=== PATIENT | female | born 1975 ===

== ENCOUNTER 2016-10-05 09:45 | Emergency (ER) | payer OTHER, SELFPAY ==
[2016-10-05 09:59] VITALS: BP 116/74; PULSE 82; RESP 18; TEMP 99.3; O2SAT 100
--- NOTE | 2016-10-05 10:20 | ED PDOC ---
HPI: General Adult Time Seen by Provider: 10/05/16 10:16 Chief Complaint (Nursing): Cough, Cold, Congestion Chief Complaint (Provider): cough History Per: Patient History/Exam Limitations: no limitations Additional Complaint(s): 41yo female complaining of sore throat for a few days. She reports cough in the mornings. States she is around kids often. She denies fever. Past Medical History Reviewed: Historical Data, Nursing Documentation, Vital Signs Vital Signs: Last Vital Signs Temp 99.3 F 10/05/16 09:58 Pulse 82 10/05/16 09:58 Resp 18 10/05/16 09:58 BP 116/74 10/05/16 09:58 Pulse Ox 100 10/05/16 10:21 - Medical History PMH: No Chronic Diseases - Surgical History Surgical History: No Surg Hx - Family History Family History: States: Unknown Family Hx - Home Medications Home Medications: Ambulatory Orders Medication Instructions Recorded Azithromycin [Zithromax] 250 mg PO DAILY #6 tab 10/05/16 - Allergies Allergies/Adverse Reactions: Allergies Allergy/AdvReac Type Severity Reaction Status Date / Time ampicillin AdvReac ANAPHYLAXIS Verified 10/05/16 10:09 Penicillins AdvReac ANAPHYLAXIS Verified 10/05/16 10:08 Review of Systems ROS Statement: Except As Marked, All Systems Reviewed And Found Negative Constitutional: Negative for: Fever ENT: Positive for: Throat Pain Respiratory: Positive for: Cough Physical Exam - Reviewed Nursing Documentation Reviewed: Yes Vital Signs Reviewed: Yes - Physical Exam Appears: Positive for: Well, Non-toxic, No Acute Distress Head Exam: Positive for: ATRAUMATIC, NORMAL INSPECTION, NORMOCEPHALIC Skin: Positive for: Warm, Dry Eye Exam: Positive for: EOMI, PERRL ENT: Positive for: Pharyngeal Erythema (mild). Negative for: Tonsillar Exudate Cardiovascular/Chest: Positive for: Regular Rate, Rhythm Respiratory: Positive for: Normal Breath Sounds. Negative for: Rales, Rhonchi, Wheezing Gastrointestinal/Abdominal: Positive for: Soft. Negative for: Tenderness Extremity: Positive for: Normal ROM - ECG O2 Sat by Pulse Oximetry: 100 (RA) Pulse Ox Interpretation: Normal Medical Decision Making Medical Decision Makin rapid strep ordered Disposition - Clinical Impression Clinical Impression: Pharyngitis - Disposition Referrals: [facility] [Outside] Disposition Time: 12:27 Condition: FAIR Prescriptions: Azithromycin [Zithromax] 250 mg PO DAILY #6 tab Instructions: Pharyngitis (ED) Additional Comments - Additional Comments Additional Comments: Scribe Attestation: Documented by Boris Lainez acting as a scribe for Cullen Caal MD. Provider Scribe Attestation: All medical record entries made by the Scribe were at my direction and personally dictated by me. I have reviewed the chart and agree that the record accurately reflects my personal performance of the history, physical exam, medical decision making, and the department course for this patient. I have also personally directed, reviewed, and agree with the discharge instructions and disposition.
== END 2016-10-05 13:25 | disposition home or self-care (01) ==
LOC: H.ER 09:45
DX: J02.9 Acute pharyngitis, unspecified (principal)

== ENCOUNTER 2017-09-14 20:30 | Emergency (ER) | payer SELFPAY ==
[2017-09-14 20:54] VITALS: PULSE 73; RESP 16
--- NOTE | 2017-09-14 22:18 | ED PDOC ---
History of Present Illness History of Present Illness: 42 y/o female presents with flu-like symptoms x 3 days. Patient reports fever, nasal congestion, sneezing, and mild nonproductive cough. Denies nausea/ vomiting, chest pain, shortness of breath, palpitations, abdominal pain, changes in bowel movements, urinary symptoms. PAtient's son sick with same. Last dose Tylenol taken 17:00. HPI: Influenza Time Seen by Provider: 09/14/17 21:38 Chief Complaint: Flu-like Symptoms Chief Complaint (Provider): flu-like symptoms History Per: Patient Exam Limitations: no limitations Onset/Duration Of Symptoms: Days (3) Symptoms include: fever, bodyaches, cough Past Medical History Reviewed: Historical Data, Nursing Documentation, Vital Signs Vital Signs: Last Vital Signs Temp 98.4 F 09/14/17 20:51 Pulse 73 09/14/17 20:51 Resp 16 09/14/17 20:51 BP 120/77 09/14/17 20:51 Pulse Ox 100 09/14/17 20:51 - Medical History PMH: No Chronic Diseases - Surgical History Other surgeries: tubal ligatin, breast augmentation - Family History Family History: States: Unknown Family Hx - Home Medications Home Medications: Ambulatory Orders Medication Instructions Recorded Azithromycin [Zithromax] 250 mg PO DAILY #6 tab 10/05/16 Fluticasone Nasal [Flonase] 1 actuation NS BID #1 bottle 09/14/17 - Allergies Allergies/Adverse Reactions: Allergies Allergy/AdvReac Type Severity Reaction Status Date / Time ampicillin AdvReac ANAPHYLAXIS Verified 09/14/17 20:51 Penicillins AdvReac ANAPHYLAXIS Verified 09/14/17 20:51 Review of Systems ROS Statement: Except As Marked, All Systems Reviewed And Found Negative Constitutional: Positive for: Fever ENT: Positive for: Nose Congestion Respiratory: Positive for: Cough Physical Exam - Reviewed Nursing Documentation Reviewed: Yes Vital Signs Reviewed: Yes - Physical Exam Appears: Positive for: Well, Non-toxic, No Acute Distress Head Exam: Positive for: ATRAUMATIC, NORMAL INSPECTION, NORMOCEPHALIC ENT: Positive for: Nasal Congestion Cardiovascular/Chest: Positive for: Regular Rate, Rhythm Respiratory: Positive for: Normal Breath Sounds Gastrointestinal/Abdominal: Positive for: Normal Exam Back: Positive for: Normal Inspection Extremity: Positive for: Normal ROM Neurologic/Psych: Positive for: Alert, Oriented - ECG O2 Sat by Pulse Oximetry: 100 - Progress ED Course And Treament: Patient educated on findings, discharged with rx Flonase. Advised fluids, rest. Tylenol/Ibuprofen PRN fever. Follow up PMD 2-3 days. Return precautions given. Disposition - Clinical Impression Clinical Impression: Influenza-like symptoms - Patient ED Disposition Is Patient to be Admitted: No Counseled Patient/Family Regarding: Diagnosis, Need For Followup, Rx Given - Disposition Referrals: [facility] [Outside] Disposition: Routine/Home Disposition Time: 23:04 Condition: STABLE Prescriptions: Fluticasone Nasal [Flonase] 1 actuation NS BID #1 bottle Instructions: Flu, Adult (DC) Forms: [employer] (Bulgarian) Print Language: MONGOLIAN
[2017-09-14 22:50] VITALS: BP 112/75; TEMP 98.1
[2017-09-14 23:04] VITALS: O2SAT 100
== END 2017-09-15 00:15 | disposition home or self-care (01) ==
LOC: H.ER 20:30
DX: J11.1 Influenza due to unidentified influenza virus with other respiratory manifestations (principal); Z88.0 Allergy status to penicillin